=== PATIENT | male | born 1940 | race Caucasian/White ===

== ENCOUNTER → 2017-07-17 | Outpatient (CLI) | payer MEDICARE ==
[~2017-07-17] MED LIST: AMLO-99 PO; BENA1TAB6 PO; BUDE3CAP4 PO; FURO-45 PO; FURO20TA19 PO; GLUC-198 PO; MECL25TA9 PO; MELO-207 PO; MESA4ENE13 RC; METO-253 PO; METO25TA93 PO; OMEP-137 PO; PRED-420 PO; PRED2.5T6 PO; PRED20TA6 PO; PREDNISONE; SULF500T42 PO; TADA20TA33 PO; TAMS0.4C25 PO; TRAM-420 PO; [UNRECOGNIZED DRUG - OTHER]
--- NOTE | 2017-07-17 19:33 | RADIOLOGY IMAGING REPORT ---
FACILITY: [facility] - [place] PATIENT NAME: Vijay Delgado : 1940 MR: [id number] V: [id number] EXAM DATE: ORDERING PHYSICIAN: BROOKE MCPHERSON TECHNOLOGIST: Location: [facility] [place] Patient: Vijay Delgado : 1940 Visit/Account:[id number] Date of Sevice: 07/17/2017 Exam: ACUTE ABDOMEN SERIES 3 VIEW Indication: , Acute abdominal pain Comparison: None available Findings: Single view of the chest shows normal cardiomediastinal contours. Mild scarring is present within the left lower lobe. No infiltrate or consolidation is identified. Within the abdomen there is a nonobstructive bowel gas pattern. No abnormal masses or calcifications are identified. IMPRESSION: 1. Negative abdominal series Report Dictated By: Samuel Wilson at 07/17/2017 7:28 PM Report E-Signed By: Samuel Wilson at 07/17/2017 7:29 PM WSN:[id number]
== END ==
LOC: RAD 16:48
PROVIDERS: ATTEND Internal Medicine
DX: K51.90 Ulcerative colitis, unspecified, without complications (principal); R10.9 Unspecified abdominal pain
CPT/HCPCS: 74022

== ENCOUNTER → 2017-09-20 | Outpatient (CLI) | payer MEDICARE ==
[~2017-09-20] MED LIST changes: +POTA8TAB41 PO
[2017-09-20 09:02] LABS: PLATELET COUNT, AUTOMATED 206 K/uL (150-450)
== END ==
LOC: LAB 08:43
PROVIDERS: ATTEND Internal Medicine
DX: I10 Essential (primary) hypertension (principal); I50.9 Heart failure, unspecified; R06.9 Unspecified abnormalities of breathing
CPT/HCPCS: 36415; 82040; 82247; 82310; 82374; 82435; 82565; 82947; 83880; 84075; 84132; 84155; 84295; 84443; 84450; 84460; 84520; 85025

== ENCOUNTER → 2017-10-03 | Outpatient (CLI) | payer MEDICARE ==
[2017-10-03 15:26] LABS: PLATELET COUNT, AUTOMATED 196 K/uL (150-450)
== END ==
LOC: LAB 15:07
PROVIDERS: ATTEND Internal Medicine
DX: R60.9 Edema, unspecified (principal); I10 Essential (primary) hypertension; E66.9 Obesity, unspecified
CPT/HCPCS: 36415; 82040; 82247; 82310; 82374; 82435; 82565; 82947; 83735; 84075; 84132; 84155; 84295; 84450; 84460; 84520; 85025

== ENCOUNTER → 2017-10-07 | Outpatient (CLI) | payer MEDICARE | LOC: LAB 14:33 | PROVIDERS: ATTEND Internal Medicine | DX: I10 Essential (primary) hypertension (principal); R79.9 Abnormal finding of blood chemistry, unspecified; I50.9 Heart failure, unspecified | CPT/HCPCS: 36415; 82310; 82374; 82435; 82565; 82947; 84132; 84295; 84520 ==

== ENCOUNTER → 2017-11-07 | Outpatient (CLI) | payer MEDICARE ==
[2017-11-07 13:59] LABS: PLATELET COUNT, AUTOMATED 178 K/uL (150-450)
== END ==
LOC: LAB 13:36
PROVIDERS: ATTEND Nurse Practitioner Family
DX: K51.90 Ulcerative colitis, unspecified, without complications (principal); K92.1 Melena; K21.9 Gastro-esophageal reflux disease without esophagitis; I10 Essential (primary) hypertension
CPT/HCPCS: 36415; 82040; 82247; 82310; 82374; 82435; 82565; 82947; 84075; 84132; 84155; 84295; 84450; 84460; 84520; 85025; 85651; 86140

== ENCOUNTER 2018-01-28 06:51 | Outpatient (RCR) | payer MEDICARE ==
[2018-01-27 13:43] LABS: PLATELET COUNT, AUTOMATED 191 K/uL (150-450)
--- NOTE | 2018-01-28 10:07 | RADIOLOGY IMAGING REPORT ---
FACILITY: [facility] PATIENT NAME: Vijay Delgado : 1940 MR: [id number] V: [id number] EXAM DATE: ORDERING PHYSICIAN: BROOKE MCPHERSON TECHNOLOGIST: Location: [facility] - [place], [place] Patient: Vijay Delgado : 1940 Visit/Account:[id number] Date of Sevice: 01/28/2018 Exam type: VENOUS DOPP LOW RIGHT EXTREMIT History: edema, fall and elevated D dimer Comparison: None. Findings: Right lower extremity veins were imaged including the right common femoral vein, greater saphenous ve in, profunda femoral vein, popliteal vein, posterior tibial vein anterior tibial vein revealing no ev idence of intraluminal thrombi. The veins were compressible and demonstrated augmentation. The righ t peroneal vein could not be visualized. Incidentally noted is extensive edema in the right calf IMPRESSION: 1. No demonstration of DVT involving the right lower extremity veins although of note the right daija morris vein could not be visualized Extensive edema in the right calf Report Dictated By: Mahsa Castellanos MD at 01/28/2018 9:59 AM Report E-Signed By: Mahsa Castellanos MD at 01/28/2018 10:03 AM RACHELN:ANGELICA
[2018-01-30] MEDS ORDERED: FURO-45 PO (12:56)
[2018-01-30] MEDS ORDERED: POTA8TAB41 PO (12:56)
== END 2018-01-28 18:00 | disposition home or self-care (01) ==
LOC: US 06:51 → EDSTATUS 06:51 → US 18:00
PROVIDERS: ATTEND Internal Medicine
DX: R60.0 Localized edema (principal); R60.9 Edema, unspecified; W19.XXXA Unspecified fall, initial encounter
CPT/HCPCS: 36415; 82040; 82247; 82310; 82374; 82435; 82565; 82947; 83880; 84075; 84132; 84155; 84295; 84443; 84450; 84460; 84520; 85025; 85379

== ENCOUNTER → 2018-02-20 | Outpatient (CLI) | payer MEDICARE ==
[~2018-02-20] MED LIST changes: +FURO-47 PO; +POTA20TA94 PO
== END ==
LOC: LAB 14:47
PROVIDERS: ATTEND Internal Medicine
DX: I10 Essential (primary) hypertension (principal); R60.9 Edema, unspecified; E66.9 Obesity, unspecified
CPT/HCPCS: 36415; G0103; 82040; 82247; 82310; 82374; 82435; 82565; 82947; 84075; 84132; 84153; 84155; 84295; 84450; 84460; 84520

== ENCOUNTER → 2018-04-22 | Outpatient (CLI) | payer MEDICARE ==
[~2018-04-22] MED LIST changes: +AMLO-113 PO; -AMLO-99 PO; +HYDR-4225 PO
[2018-04-22 15:57] LABS: PLATELET COUNT, AUTOMATED 202 K/uL (150-450)
== END ==
LOC: LAB 15:28
PROVIDERS: ATTEND Internal Medicine
DX: I50.9 Heart failure, unspecified (principal); I10 Essential (primary) hypertension; E66.9 Obesity, unspecified; R60.9 Edema, unspecified; K51.90 Ulcerative colitis, unspecified, without complications; N40.0 Benign prostatic hyperplasia without lower urinary tract symptoms
CPT/HCPCS: 36415; 81001; 82040; 82247; 82310; 82374; 82435; 82465; 82565; 82947; 83718; 84075; 84132; 84153; 84155; 84295; 84450; 84460; 84478; 84520; 84550; 85025

== ENCOUNTER → 2018-04-25 | Outpatient (CLI) | payer MEDICARE | LOC: LAB 10:21 | PROVIDERS: ATTEND Urology | DX: R97.20 Elevated prostate specific antigen [PSA] (principal); N40.0 Benign prostatic hyperplasia without lower urinary tract symptoms | CPT/HCPCS: 36415; 84154 ==

== ENCOUNTER → 2018-06-19 | Outpatient (CLI) | payer MEDICARE ==
[2018-06-19 11:39] LABS: PLATELET COUNT, AUTOMATED 192 K/uL (150-450)
== END ==
LOC: LAB 10:57
PROVIDERS: ATTEND Nurse Practitioner Family
DX: K51.90 Ulcerative colitis, unspecified, without complications (principal); R19.7 Diarrhea, unspecified; K92.1 Melena; K21.9 Gastro-esophageal reflux disease without esophagitis; I10 Essential (primary) hypertension
CPT/HCPCS: 36415; 82040; 82247; 82310; 82374; 82435; 82565; 82947; 84075; 84132; 84155; 84295; 84450; 84460; 84520; 85025; 86140

== ENCOUNTER → 2018-10-09 | Outpatient (CLI) | payer MEDICARE ==
[~2018-10-09] MED LIST changes: -AMLO-113 PO; +AMLO-127 PO
[2018-10-09 11:18] LABS: PLATELET COUNT, AUTOMATED 179 K/uL (150-450)
== END ==
LOC: LAB 11:02
PROVIDERS: ATTEND Nurse Practitioner Family
DX: K51.90 Ulcerative colitis, unspecified, without complications (principal); K21.9 Gastro-esophageal reflux disease without esophagitis; I10 Essential (primary) hypertension
CPT/HCPCS: 36415; 82040; 82247; 82310; 82374; 82435; 82565; 82947; 84075; 84132; 84155; 84295; 84450; 84460; 84520; 85025; 86140

== ENCOUNTER → 2019-01-29 | Outpatient (CLI) | payer MEDICARE ==
[~2019-01-29] MED LIST changes: +BENA1TAB58 PO; +BUDE3CAP6 PO
[2019-01-29 11:42] LABS: PLATELET COUNT, AUTOMATED 179 K/uL (150-450)
== END ==
LOC: LAB 10:46
PROVIDERS: ATTEND Nurse Practitioner Family
DX: K51.90 Ulcerative colitis, unspecified, without complications (principal); K21.9 Gastro-esophageal reflux disease without esophagitis; I10 Essential (primary) hypertension
CPT/HCPCS: 36415; 82040; 82247; 82310; 82374; 82435; 82565; 82947; 84075; 84132; 84155; 84295; 84450; 84460; 84520; 85025; 86140

== ENCOUNTER → 2019-02-17 | Outpatient (CLI) | payer MEDICARE ==
[~2019-02-17] MED LIST changes: +METO100T20 PO; +SIL50 FT
[2019-02-17 10:30] LABS: PLATELET COUNT, AUTOMATED 206 K/uL (150-450)
[2019-02-17 12:03] LABS: LDL CHOLESTEROL 76 mg/dl
== END ==
LOC: LAB 10:05
PROVIDERS: ATTEND Internal Medicine
DX: N40.0 Benign prostatic hyperplasia without lower urinary tract symptoms (principal); I10 Essential (primary) hypertension; R60.9 Edema, unspecified; E66.9 Obesity, unspecified; K51.90 Ulcerative colitis, unspecified, without complications; N52.9 Male erectile dysfunction, unspecified
CPT/HCPCS: 36415; 81001; 82040; 82247; 82310; 82374; 82435; 82465; 82565; 82947; 83718; 84075; 84132; 84153; 84154; 84155; 84295; 84402; 84403; 84443; 84450; 84460; 84478; 84520; 85025

== ENCOUNTER → 2019-02-20 | Outpatient (CLI) | payer MEDICARE | LOC: LAB 14:07 | PROVIDERS: ATTEND Urology | DX: R31.9 Hematuria, unspecified (principal) | CPT/HCPCS: 81001; 87088 ==